=== PATIENT | female | born 1975 | race Caucasian/White ===

== ENCOUNTER 2017-10-05 08:21 | Emergency (ER) | payer MEDICAID ==
[2017-10-05 08:21] VITALS: BMI 41.1
[2017-10-05 08:32] VITALS: BP 116/75; PULSE 80; RESP 20; TEMP 99.4; O2SAT 97
--- NOTE | 2017-10-05 09:12 | C.PDOC ---
History Of Present Illness 41 y/o female presents to ED with complaints of left knee pain that began 1 month ago. Patient states she saw PMD and was advised she needs x-ray. Denies falling, injuries or any other physical complaints. Pt works as medical record associate. Patient's LMP was on September 07, 2017. Time Seen by Provider: 10/05/17 08:44 Chief Complaint (Nursing): Lower Extremity Problem/Injury History Per: Patient History/Exam Limitations: no limitations Onset/Duration Of Symptoms: Days (30) Current Symptoms Are (Timing): Still Present Recent travel outside of the [place]: No - Knee Description Of Injury: denies: Fell, Struck With Object, Struck Against Object, Twisted, Laceration Past Medical History Reviewed: Historical Data, Nursing Documentation, Vital Signs Vital Signs: Last Vital Signs Temp 99.4 F 10/05/17 08:28 Pulse 80 10/05/17 08:28 Resp 20 10/05/17 08:28 BP 116/75 10/05/17 08:28 Pulse Ox 97 10/05/17 11:03 - Medical History PMH: Hypothyroidism, Kidney Stones, Chronic Kidney Disease Surgical History: No Surg Hx Family History: States: No Known Family Hx - Social History Hx Tobacco Use: No Hx Alcohol Use: No Hx Substance Use: No - Immunization History Hx Tetanus Toxoid Vaccination: No Hx Influenza Vaccination: Yes Hx Pneumococcal Vaccination: No Review Of Systems Constitutional: Negative for: Fever, Chills Gastrointestinal: Negative for: Nausea, Vomiting, Diarrhea Musculoskeletal: Positive for: Other (Left knee pain) Skin: Negative for: Rash, Lesions Neurological: Negative for: Weakness, Numbness Physical Exam - Physical Exam Appears: Well, Non-toxic, Other (Awake and alert) Skin: Normal Color, Warm, Dry, No Rash Head: Atraumatic, Normacephalic Eye(s): bilateral: Normal Inspection Oral Mucosa: Moist Extremity: Tenderness (Lateral medial patellar), No Pedal Edema, No Deformity, No Swelling, Other (No erythema) Extremity: Bilateral: Normal Color And Temperature Neurological/Psych: Oriented x3, Normal Speech, Normal Cognition ED Course And Treatment O2 Sat by Pulse Oximetry: 97 (RA) Pulse Ox Interpretation: Normal - Other Rad Left Knee X-Ray X-Ray: Viewed By Me, Read By Radiologist Interpretation: PROCEDURE: Left Knee Radiographs. HISTORY: Pain. COMPARISON : None. FINDINGS: BONES: Normal. No fracture. JOINTS: Normal. No osteoarthritis. JOINT EFFUSION: None. OTHER FINDINGS: None. IMPRESSION: Normal radiographs of the left knee. Patient was treated with knee brace. She was d/c home on Ibuprofen with Ortho follow up. Progress Note: Ordered left knee x-ray. Disposition - Disposition Referrals: Morales Marie III, MD [Staff Provider] - Disposition: HOME/ ROUTINE Disposition Time: 11:02 Condition: STABLE Additional Instructions: Follow up with Orthopedist within 1-2 days. Return to ED if feel worse. Prescriptions: Ibuprofen [Motrin Tab] 400 mg PO Q8 #30 tab Instructions: Knee Pain (ED) Forms: [place] (Yi) - Clinical Impression Clinical Impression: Knee pain - PA / CAR ESCORT / Resident Statement MD/DO has reviewed & agrees with the documentation as recorded. - Scribe Statement The provider has reviewed the documentation as recorded by the Antoniibahsan Myrick All medical record entries made by the Scribe were at my direction and personally dictated by me. I have reviewed the chart and agree that the record accurately reflects my personal performance of the history, physical exam, medical decision making, and the department course for this patient. I have also personally directed, reviewed, and agree with the discharge instructions and disposition.
--- NOTE | 2017-10-05 09:54 | RAD ---
PROCEDURE: Left Knee Radiographs. HISTORY: Pain. COMPARISON: None. FINDINGS: BONES: Normal. No fracture. JOINTS: Normal. No osteoarthritis. JOINT EFFUSION: None. OTHER FINDINGS: None. IMPRESSION: Normal radiographs of the left knee.
== END 2017-10-05 11:50 | disposition home or self-care (01) ==
LOC: C.ER 08:21
DX: M25.562 Pain in left knee (principal)